=== PATIENT | male | born 1970 | race African-American/Black ===

== ENCOUNTER 2019-04-09 07:10 | Emergency (ER) | payer MEDICARE, MEDICAID ==
--- NOTE | 2019-04-09 07:30 | RAD ---
EXAM: Single view of the chest HISTORY: Fall with chest pain COMPARISON: None FINDINGS: Single view of the chest shows an enlarged cardiomediastinal silhouette. The patient is st atus post aortic valve repair. There is no evidence of consolidation, mass, or pleural effusion. The bones are unremarkable. Surgical clips are seen in the right axillary region. IMPRESSION: No evidence of acute cardiopulmonary disease
--- NOTE | 2019-04-09 07:54 | CT ---
EXAM: CT brain without contrast HISTORY: Fall from bridge landing on rear end. Headache COMPARISON: None TECHNIQUE: Multiple contiguous axial images were obtained and a CT of the brain without contrast. Sag ittal and coronal reformats were performed. FINDINGS: There are scattered hypodensities in the subcortical and periventricular white matter consi stent with small vessel ischemic disease. There is no evidence of hydrocephalus, intracranial hemorrhage, or extra-axial fluid collection. The calvarium and overlying soft tissues are unremarkable. The visualized paranasal sinuses and masto id air cells are well aerated. IMPRESSION: No evidence of acute intracranial abnormality
--- NOTE | 2019-04-09 07:56 | CT ---
EXAM: CT of the cervical spine without contrast HISTORY: Fall from bridge with neck pain COMPARISON: None TECHNIQUE: Multiple contiguous axial images were obtained in a CT of the cervical spine without contr ast. Sagittal and coronal reformats were performed. FINDINGS: The vertebral bodies and intervertebral discs demonstrate normal height and alignment witho ut fracture or subluxation. No prevertebral soft tissue swelling is seen. Mild degenerative changes are seen throughout the cervical spine. The posterior facets are well aligned. Normal alignment of the skull base with the cervical spine is seen. The lung apices and cervical soft tissues are unremarkable. IMPRESSION: No evidence of acute osseous abnormality of the cervical spine. Dr. Todd notified of findings at 7:55 AM on 04/09/2019
[2019-04-09 07:57] LABS: ALT (SGPT) 32 U/L (8-55); AST (SGOT) 73 U/L (5-34); Albumin 4.2 g/dL (3.5-5.0); Alkaline Phosphatase 86 U/L (40-150); Anion Gap 27 mmol/L (10-20); BUN (Urea Nitrogen) 44 mg/dL (8.9-20.6); Bilirubin, Total 0.8 mg/dL (0.2-1.2); Calc. Creatinine Clearance 0 mL/min (70-130); Calcium 8.9 mg/dL (7.8-10.44); Carbon Dioxide 22 mmol/L (22-29); Chloride 101 mmol/L (98-107); Estimated GFR-MDRD 3; Glucose 141 mg/dL (70-105); Potassium 4.9 mmol/L (3.5-5.1); Protein, Total 8.2 g/dL (6.0-8.3); Sodium 145 mmol/L (136-145)
[2019-04-09 08:05] LABS: Hemoglobin 9.8 g/dL (14.0-18.0); Mean Corpuscular HGB CONC 34.1 g/dL (32.0-36.0); Mean Corpuscular Hemoglobin 35.2 pg (27.0-31.0); Mean Platelet Volume 9.4 fL (7.4-10.4); Platelet Count 206 thou/uL (130-400); RBC Distribution Width 18.3 % (11.5-14.5); Red Blood Cell (RBC) Count 2.79 mill/uL (4.70-6.10); White Blood Cell (WBC) Count 20.7 thou/uL (4.8-10.8)
--- NOTE | 2019-04-09 08:12 | CT ---
EXAM: 1. CT of the chest with contrast 2. CT of the abdomen and pelvis with contrast 3. Limited CT of the thoracic and lumbosacral spine with contrast HISTORY: Fall from bridge landing on rear end with chest pain, abdominal pain, and back pain. COMPARISON: None TECHNIQUE: 1. Multiple contiguous axial images were obtained in a CT the chest with contrast. Coronal reformats were performed. 2. Multiple contiguous axial images were obtained a CT of the abdomen and pelvis with contrast. Coron al reformats were performed. 3. Limited CTs of the thoracic and lumbosacral spines were performed with contrast. Sagittal and ian nal re-reformats were created based off images obtained in the chest, abdomen, and pelvic CTs. FINDINGS: CT CHEST: Mediastinum: The heart is globally enlarged. The patient is status post sternotomy. Calcifications lo w density is seen surrounding the aortic root. This may represent a small amount of fluid or mural thrombus within an aneurysm of the descending aorta. Are seen in the coronary arteries and aorta. The patient appears to be status post aortic valve repair. Lungs: No focal infiltrates or nodules. Atelectasis in the lung bases. Pleural space: No pneumothorax or pleural effusion. Thoracic bones: There are fractures of the left anterior third through seventh ribs. There is a fract ure of the posterior left 12th rib. Thoracic chest wall: A bypass graft extends from the right axillary region to the right inguinal josee on. CT ABDOMEN/PELVIS: Peritoneum: No free air or fluid. Stranding changes are seen in the pelvis from the pelvic fractures. Liver: Unremarkable. Gallbladder: Unremarkable. Adrenal glands: Unremarkable. Kidneys: Atrophic. A calcification medial to the right kidney could represent a calcification in the right renal pelvis. No hydronephrosis is seen of the atrophic right kidney. Spleen: Unremarkable. Pancreas: Unremarkable. Bowel: An ostomy is seen in the right lower quadrant of the abdomen. Retroperitoneum: No lymphadenopathy. Pelvis: No focal mass or abnormality. Urinary bladder is decompressed. Pelvic bones: There are fractures of the bilateral superior and inferior pubic rami. There is a fract ure of the left aspect of the sacrum. LIMITED CT OF THE THORACIC AND LUMBOSACRAL SPINE: There are fractures of the left L1 and L5 transverse processes. No vertebral fracture or subluxation are seen. No prevertebral soft tissue swelling are present. IMPRESSION: 1. No evidence of acute intrathoracic abnormality 2. No evidence of acute intra-abdominal/pelvic abnormality 3. Left L1 and L5 transverse process fractures 4. Bilateral superior and inferior pubic rami fractures 5. Left sacral fracture 6. Left rib fractures as above Dr. Todd notified of the findings at 8:09 AM on 04/09/2019
[2019-04-09 08:14] LABS: PTT 41.1 SEC (22.9-36.1); Prothrombin Time 30.8 SEC (12.0-14.7)
[2019-04-09 08:21] LABS: Band 14 % (5-11); Lymphocytes 29 % (21-51); MDiff Complete? YES; Metamyelocyte 3 % (0-0); Monocytes 1 % (0-10); Neutrophil 53 % (42-75)
[2019-04-09] MEDS ORDERED: Rocuronium Bromide 10 MG/ML (10ML VIAL) ONE (08:30)
[2019-04-09] MEDS ORDERED: Norepinephrine 8 MG/0.9% NS 250 ML ONE (08:32)
[2019-04-09] MEDS ORDERED: Ketamine 50 MG/ML (10ML VIAL) ONE (08:37)
[2019-04-09] MEDS ORDERED: fentaNYL Citrate/PF 2,000 MCG in Sodium Chloride 0.9% 60 ML IV SCH (08:44)
[2019-04-09 09:02] LABS: CKMB 41.2 ng/mL (0-6.6)
[2019-04-09] MEDS ORDERED: Calcium Chloride 1 GM/10 ML Abboject SYRINGE ONE (11:11)
[2019-04-09] MEDS ORDERED: Sodium Bicarb 50 MEQ/50 ML VIAL ONE (11:11)
[2019-04-09] MEDS ORDERED: EPINEPHrine 1 MG/10 ML Abboject SYRINGE ONE (11:11)
[2019-04-09] MEDS ORDERED: Ondansetron PF 4 MG/2 ML Vial ONE (12:17)
[2019-04-09] MEDS ORDERED: ISOVUE-370 76%-LOCM 1 ML ONE (15:42)
--- NOTE | 2019-04-09 21:30 | HP ---
HISTORY: 49-year-old male dialysis patient with fistula in the left arm, [place] [address]. Whenever he needed to empty his colostomy, he was doing so over a bridge, but fell off 15 feet. He was brought in by ground EMS immobilized. He was alert and oriented, stable. In the emergency room, his blood pressure was stable, GCS was 15. Initially, he was evaluated as a level-2 trauma patient. During the evaluation, he was sent over for a CAT scan of his head, neck, chest, abdomen, and pelvis, returned to the [facility] [place], remained stable. He then dropped his pressure in the 80s and was given blood and some fluids and stabilized and sent back to CAT scan to repeat a CAT scan of the chest. While in CT scan, he had a code and CPR initiated. During his hypertensive episode in the [facility] [place], his trauma level activation was upgraded to a level-1 and I was called emergently. By the time of my arrival, CPR was in progress and CAT scan. The patient had CPR ongoing for about 5 to 8 minutes. He was intubated. He has received multiple rounds of drugs and he had no pulse and no response. After about 15 more minutes, the trauma code was called and he was pronounced . During this evaluation, he was intubated, he was unresponsive. There was no pulse palpated. Lungs were clear to auscultation during bag ventilation breathing. Abdomen, soft, nontender. Extremities unremarkable. During this evaluation, his hemoglobin was noted to be 9.8, white count 20.7, platelet count 206. CK-MB 41.2, troponin 11. His BUN and creatinine were consistent with end-stage renal disease, on dialysis. BUN 44, creatinine 18. Sodium 145, potassium 4.9. His CAT scan reports reveal that a CAT scan of his brain was unremarkable. CAT scan of his cervical spine was unremarkable. Chest x-ray obtained at 07:23, no acute disease. Chest, abdomen, and pelvis CAT scan with contrast revealed L1 and L5 transverse process fractures, bilateral superior and inferior pubic rami fractures, left sacral fracture and left rib fractures, but no pulmonary problems. FAST exam performed by ER physician was unremarkable for any pericardial or mediastinal or abdominal problem or fluid. It was felt the patient most likely had a cardiac event during this traumatic experience leading to his . Job ID: [id number]
== END 2019-04-09 09:15 | disposition expired ==
LOC: ERS 07:10 → EDBD 07:10 → ERS 09:15
DX: I46.9 Cardiac arrest, cause unspecified (principal); S32.10XA Unspecified fracture of sacrum, initial encounter for closed fracture; S32.592A Other specified fracture of left pubis, initial encounter for closed fracture; S32.591A Other specified fracture of right pubis, initial encounter for closed fracture; S25.09XA Other specified injury of thoracic aorta, initial encounter; S22.42XA Multiple fractures of ribs, left side, initial encounter for closed fracture; W13.1XXA Fall from, out of or through bridge, initial encounter
CPT/HCPCS: 31500; 36430; 70450; 71045; 71260; 72125; 74177; 80053; 82553; 82962; 84484; 85025; 85610; 85730; 86850; 86900; 86901; 86920; 93005; 94002; 94760; 96365; 96375; 96376; 99291; P9016; 36415; 36416; 71275; G0390; J0171; J2405; J3010; J3490; Q9966